=== PATIENT | female | born 1960 | race Hispanic/Latino ===

== ENCOUNTER 2019-07-08 18:43 | Observation (INO) | payer OTHER ==
--- NOTE | 2019-07-08 18:58 | Emergency Department Report ---
Blank Doc - Documentation Documentation: 58-year-old female that presents with chest pain and SOB. This initial assessment/diagnostic orders/clinical plan/treatment(s) is/are subject to change based on patient's health status, clinical progression and re- assessment by fellow clinical providers in the ED. Further treatment and workup at subsequent clinical providers discretion. Patient/guardians urged not to elope from the ED as their condition may be serious if not clinically assessed and managed. Initial orders include: 1- Patient sent to MAIN for further evaluation and treatment 2- labs 3- EKG 4- CXR
--- NOTE | 2019-07-08 19:44 | XRay Report ---
CHEST 2 VIEWS INDICATION: Chest Pain. COMPARISON: None FINDINGS: Support devices: None. Heart: Within normal limits. 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 Pleura: No significant pleural effusion. No pneumothorax. Additional findings: None. IMPRESSION: 1. 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
[2019-07-08 19:55] LABS: Basophils # (Auto) 0.1 K/mm3 (0.0-0.1); Basophils % (Auto) 0.8 % (0.0-1.8); Eosinophils # (Auto) 0.1 K/mm3 (0.0-0.4); Eosinophils % (Auto) 2.2 % (0.0-4.3); Hematocrit 42.1 % (30.3-42.9); Hemoglobin 14.2 gm/dl (10.1-14.3); Lymphocytes # (Auto) 2.6 K/mm3 (1.2-5.4); Lymphocytes % (Auto) 38.8 % (13.4-35.0); Mean Corpuscular HGB Conc 34 % (30-34); Mean Corpuscular Volume 90 fl (79-97); Monocytes # (Auto) 0.4 K/mm3 (0.0-0.8); Monocytes % (Auto) 6.2 % (0.0-7.3); Platelet Count 252 K/mm3 (140-440); Red Blood Count 4.66 M/mm3 (3.65-5.03); Red Cell Distribution Width 12.8 % (13.2-15.2)
[2019-07-08 20:05] LABS: INR 0.98 (0.87-1.13)
[2019-07-08 20:46] LABS: Alanine Aminotransferase 28 units/L (7-56); Albumin 4.7 g/dL (3.9-5); BUN/Creatinine Ratio 18; Blood Urea Nitrogen 11 mg/dL (7-17); Calcium 9.2 mg/dL (8.4-10.2); Hemolysis Index 23
[2019-07-08] MEDS ORDERED: NITROGLYCERIN 2% OINT 1 GM TP ONE (23:15)
[2019-07-08] MEDS ORDERED: ONDANSETRON 4 MG/2 ML INJ IV ONE (23:15)
[2019-07-08] MEDS ORDERED: fentaNYL 100 MCG/2 ML INJ IV ONE (23:15)
--- NOTE | 2019-07-08 23:20 | Emergency Department Report ---
HPI - General Chief Complaint: Chest Pain Time Seen by Provider: 07/08/19 18:58 - HPI HPI: Room 19 The patient is a 58-year-old female presenting with a chief complaint of chest pain. The patient states for approximately 1.5 months she's had daily chest pain described as a pressure in nature. Patient missed a shortness of breath and nausea but denies vomiting or diaphoresis with her chest pain. Patient gets her chest pain a score of 4/10 currently. The patient states her chest pain started approximately 1 hour before landing when she flew to many [place] 1.5 months ago. The patient states she went emergency department had a CT scan of her chest performed which only revealed a right-sided aortic arch. There is no evidence of PE. The patient states she had a stress test May 14 which was normal (this was before the onset of her chest pain). But she has never had a cardiac catheterization Location: [See above] Duration: [See above] Quality: [See above] Severity: [See above] Timing: [See above] Context: [See above] Modifying factors: [See above] Associated signs and symptoms: [see above] ED Past Medical Hx - Past Medical History Hx Hypertension: Yes (2015) Hx Arthritis: Yes - Surgical History Past Surgical History?: No Additional Surgical History: Cochlear implant, herniorrhaphy - Family History Family history: no significant - Social History Smoking Status: Former Smoker (none 24 years) Substance Use Type: None (denies illicit drug use) - Medications Home Medications: Home Medications Medication Instructions Recorded Confirmed Last Taken Type ALPRAZolam [Alprazolam] 0.5 mg PO PRN 07/31/16 07/31/16 07/30/16 History Carvedilol 12.5 mg PO BID 07/31/16 07/31/16 07/31/16 06:00 History Hydroxychloroquine [Plaquenil] 200 mg PO BID 07/31/16 07/31/16 07/30/16 History Meclizine [Antivert] 25 mg PO TID PRN 07/31/16 07/31/16 07/27/16 History ED Review of Systems ROS: Stated complaint: CHEST PAIN Other details as noted in HPI Constitutional: denies: diaphoresis Eyes: denies: eye pain ENT: denies: throat pain Respiratory: shortness of breath Cardiovascular: chest pain Endocrine: no symptoms reported Gastrointestinal: nausea. denies: vomiting Genitourinary: denies: dysuria Musculoskeletal: denies: back pain Neurological: denies: headache Physical Exam - Physical Exam Vital Signs: Vital Signs 07/08/19 07/08/19 07/08/19 18:54 21:45 22:04 Temperature 97.8 F Pulse Rate 59 L Respiratory 20 16 Rate Blood Pressure Blood Pressure 165/73 [Left] O2 Sat by Pulse 99 100 97 Oximetry 07/08/19 07/08/19 22:15 22:31 Temperature Pulse Rate 55 L 56 L Respiratory 16 19 Rate Blood Pressure 166/75 Blood Pressure [Left] O2 Sat by Pulse 99 98 Oximetry Physical Exam: GENERAL: The patient is well-developed well-nourished female lying on stretcher not appearing to be in acute distress. [] HEENT: Normocephalic. Atraumatic. Extraocular motions are intact. Patient has moist mucous membranes. NECK: Supple. Trachea midline CHEST/LUNGS: Clear to auscultation. There is no respiratory distress noted. HEART/CARDIOVASCULAR: Regular. There is no tachycardia. There is no gallop rub or murmur. ABDOMEN: Abdomen is soft, nontender. Patient has normal bowel sounds. There is no abdominal distention. SKIN: There is no rash. There is no edema. There is no diaphoresis. NEURO: The patient is awake, alert, and oriented. The patient is cooperative. The patient has normal speech MUSCULOSKELETAL: There is no evidence of acute injury. ED Course Vital Signs 07/08/19 07/08/19 07/08/19 18:54 21:45 22:04 Temperature 97.8 F Pulse Rate 59 L Respiratory 20 16 Rate Blood Pressure Blood Pressure 165/73 [Left] O2 Sat by Pulse 99 100 97 Oximetry 07/08/19 07/08/19 22:15 22:31 Temperature Pulse Rate 55 L 56 L Respiratory 16 19 Rate Blood Pressure 166/75 Blood Pressure [Left] O2 Sat by Pulse 99 98 Oximetry ED Medical Decision Making - Lab Data Result diagrams: 07/08/19 19:03 07/08/19 19:03 Laboratory Tests 07/08/19 07/08/19 07/08/19 19:03 19:03 19:03 WBC 6.8 RBC 4.66 Hgb 14.2 Hct 42.1 MCV 90 MCH 31 MCHC 34 RDW 12.8 L Plt Count 252 Lymph % (Auto) 38.8 H [place] % (Auto) 6.2 Eos % (Auto) 2.2 Baso % (Auto) 0.8 Lymph # 2.6 [place] # 0.4 Eos # 0.1 Baso # 0.1 Seg Neutrophils % 52.0 Seg Neutrophils # 3.5 PT 12.9 INR 0.98 APTT 28.0 Sodium 137 Potassium 3.9 Chloride 100.7 Carbon Dioxide 23 Anion Gap 17 BUN 11 Creatinine 0.6 L Estimated GFR > 60 BUN/Creatinine Ratio 18 Glucose 89 Calcium 9.2 Total Bilirubin 1.10 AST 24 ALT 28 Alkaline Phosphatase 66 Troponin T < 0.010 Total Protein 7.7 Albumin 4.7 Albumin/Globulin Ratio 1.6 07/08/19 21:43 WBC RBC Hgb Hct MCV MCH MCHC RDW Plt Count Lymph % (Auto) [place] % (Auto) Eos % (Auto) Baso % (Auto) Lymph # [place] # Eos # Baso # Seg Neutrophils % Seg Neutrophils # PT INR APTT Sodium Potassium Chloride Carbon Dioxide Anion Gap BUN Creatinine Estimated GFR BUN/Creatinine Ratio Glucose Calcium Total Bilirubin AST ALT Alkaline Phosphatase Troponin T < 0.010 Total Protein Albumin Albumin/Globulin Ratio - EKG Data -: EKG Interpreted by Me EKG shows normal: sinus rhythm Rate: bradycardia (58 bpm) - EKG Data When compared to previous EKG there are: previous EKG unavailable Interpretation: nonspecific ST-T wave bernardo (T-wave inversion in leads V2, V3) - Radiology Data Radiology results: report reviewed (chest x-ray), image reviewed (chest x-ray) interpreted by me: Chest x-ray-no focal infiltrates, no pneumothorax. [address] [address] XRay Report Signed Patient: EDVIN SCHULZ MR #: [id number] : 1960 Acct:[id number] Age/Sex: 58 / F ADM Date: 07/08/19 Loc: ED Attending Dr: Ordering Physician: KETTY LEROY NP Date of Service: 07/08/19 Procedure(s): XR chest routine 2V Accession Number(s): [id number] cc: KETTY LEROY NP Fluoro Time In Minutes: CHEST 2 VIEWS INDICATION: Chest Pain. COMPARISON: None FINDINGS: Support devices: None. Heart: Within normal limits. 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 Pleura: No significant pleural effusion. No pneumothorax. Additional findings: None. IMPRESSION: 1. 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 ED Disposition Clinical Impression: Chest pain Disposition: DC-09 OP ADMIT IP TO THIS HOSP Is pt being admited?: Yes Does the pt Need Aspirin: Yes Condition: Fair Instructions: Chest Pain (ED) Time of Disposition: 23:21 (hospitalist paged (Dr Stokes))
[2019-07-08] MEDS ORDERED: ASPIRIN 325 MG TAB PO ONE (23:22)
[2019-07-08] MEDS ORDERED: NITROGLYCERIN 0.4 MG TAB SUBL SL PRN (23:51)
[2019-07-08] MEDS ORDERED: MORPHINE 2 MG/1 ML INJ IV PRN (23:52)
[2019-07-08] MEDS ORDERED: ACETAMINOPHEN 325 MG TAB PO PRN (23:52)
[2019-07-08] MEDS ORDERED: ONDANSETRON 4 MG/2 ML INJ IV PRN (23:52)
[2019-07-08] MEDS: HEPARIN 5,000 UNIT/1 ML VIAL SUB-Q SCH (23:55)
[2019-07-09] MEDS ORDERED: HEPARIN 5,000 UNIT/1 ML VIAL ONE (01:07)
[2019-07-09] MEDS ORDERED: ASPIRIN 325 MG TAB ONE (01:07)
[2019-07-09] MEDS ORDERED: ONDANSETRON 4 MG/2 ML INJ ONE ×2 (01:08)
[2019-07-09 04:02] VITALS: BP 109/63
--- NOTE | 2019-07-09 05:02 | History and Physical Report ---
CHIEF COMPLAINT: Chest pain. HISTORY OF PRESENT ILLNESS: The patient is a 58-year-old female who says she has been having chest pain on and off for about 1-1/2 months, and has gone [place], where they checked and did a CAT scan and some echocardiogram without finding anything. The patient then started having chest pain recently and has also had a CAT scan done in the Emergency Room in another facility, where they ruled out pulmonary embolism. The patient states she has had stress test done within the last 2 months because of this recurrent chest pain, and the stress test was unremarkable. The patient has never had a cardiac catheterization done. There is history of associated shortness of breath and nausea, but no vomiting. There is no history of diaphoresis. The pain is located in the precordial area, appears as a pressure sensation in the chest and radiates down to the back area. PAST MEDICAL HISTORY: Pertinent for hypertension. Also, the patient has past medical history of lupus erythematosus and arthritis. PAST SURGICAL HISTORY: Pertinent for herniorrhaphy and cochlear implant for difficulty with hearing. FAMILY HISTORY: Noncontributory. SOCIAL HISTORY: The patient is a former cigarette smoker and quit about 24 years ago. The patient does not drink alcohol and does not use illicit drug. MEDICATIONS: The patient is on alprazolam 0.5 mg by mouth as needed and carvedilol 12.5 mg by mouth twice daily. The patient is also on Plaquenil, hydroxychloroquine 200 mg by mouth twice daily. The patient is on meclizine 25 mg by mouth 3 times daily as needed for vertigo. ALLERGIES: There are no known drug allergies. REVIEW OF SYSTEMS: CONSTITUTIONAL: There is no fever, no chills, no diaphoresis. HEENT: There is no headache or sore throat. CARDIOVASCULAR SYSTEM: Chest pain is present. No orthopnea. RESPIRATORY SYSTEM: Shortness of breath is present and no cough. GASTROINTESTINAL SYSTEM: There is nausea, but no vomiting, no abdominal pain, diarrhea or constipation. NEUROLOGICAL SYSTEM: There is no numbness, no dizziness, no altered mental status. MUSCULOSKELETAL SYSTEM: There is no joint pain or swelling. DERMATOLOGICAL SYSTEM: There is no skin rash or itching. GENITOURINARY SYSTEM: There is no dysuria, hematuria or flank pain. Rest of system review is normal. PHYSICAL EXAMINATION: GENERAL: At the time of exam, the patient was found to be alert, oriented x 3 and not in acute distress. VITAL SIGNS: At the initial time of presentation showed temperature of 97.8 degrees Fahrenheit, pulse of 59, respirations 20, blood pressure 165/73, O2 sat of 99% on room air. HEENT: Showed pupils to be equal, round, reactive to light and accommodating. Extraocular muscles are intact. NECK: Supple with no JVD or carotid bruit. CARDIOVASCULAR SYSTEM: Shows normal first and second heart sounds with no gallops or murmurs. RESPIRATORY SYSTEM: Shows good air entry on both sides of the lungs with no abnormal breath sounds. GASTROINTESTINAL SYSTEM: Shows abdomen to be full, soft, nontender with no organomegaly or rigidity. NEUROLOGIC: Shows no focal deficit. MUSCULOSKELETAL SYSTEM: Shows no joint swelling or tenderness. DERMATOLOGICAL SKIN: Shows no skin rash. GENITOURINARY SYSTEM: Shows no costovertebral angle tenderness. IMAGING STUDIES: The patient had chest x-ray done that shows probable right aortic arch and there is recommendation to correlate clinically by the radiologist. PERTINENT LABORATORY RESULTS: The patient had the following lab results done; CBC showed normal white count, normal hemoglobin and normal hematocrit with CBC differential showing elevated lymphocyte count of 38.8%. The patient's coagulation studies were unremarkable. Chemistry came back unremarkable and the patient's troponin level, 2 sets, already were normal. DIAGNOSIS: Chest pain. PLAN OF CARE: 1. The patient will be placed on observation on telemetry. 2. The patient will have serial cardiac enzymes involving troponin done 6 hours after the second troponin was done. 3. The patient will have Cardiology consult with Dr. Iban Rowell for evaluation because of recurrent chest pain and recent history of negative stress test. 4. The patient will be on IV morphine 2 mg every 3 hours as needed for pain and IV Zofran 4 mg every 8 hours for nausea and vomiting. 5. The patient will be on nitro paste half-inch to anterior chest wall q.i.d. and will be on sublingual nitroglycerin 0.4 mg every 5 minutes as needed for breakthrough chest pain. 6. The patient will be on aspirin 325 mg by mouth daily and heparin 5000 units subcutaneously q. 12 hours for DVT prophylaxis. 7. The patient will be on Tylenol 650 mg by mouth every 4 hours for fever and headache. 8. The patient will be on oxygen by nasal cannula at 2 liters per minute. JOB# [id number] OCN/NTS
[2019-07-09] MEDS: NITROGLYCERIN 2% OINT 1 GM TP SCH ×4 (06:34→17:26)
[2019-07-09] MEDS: HEPARIN 5,000 UNIT/1 ML VIAL SUB-Q SCH (09:11)
--- NOTE | 2019-07-09 09:27 | Consultation ---
<TEGAN LUCERO - Last Filed: 07/09/19 13:29> History of Present Illness Consult date: 07/09/19 Consult reason: chest pain History of present illness: This is a 58-year old woman with a history of systemic lupus erythematosus and hypertension who presented with complaints of chest pain. Patient reports chest pain underneath her breasts and across her chest has been intermittent for several weeks. She denies unusual shortness of breath and palpitations. Early May she had a normal perfusion stress thallium test and a normal left ventricular systolic function, ejection fraction 55-65% by echocardiogram as an outpatient. Patient reports she was hospitalized at [facility] just two weeks ago with similar complaints. 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 Medications and Allergies Allergies Allergy/AdvReac Type Severity Reaction Status Date / Time No Known Allergies Allergy Unverified 07/31/16 08:17 Home Medications Medication Instructions Recorded Confirmed Last Taken Type ALPRAZolam [Alprazolam] 0.5 mg PO PRN 07/31/16 07/09/19 07/30/16 History Active Meds: Active Medications Acetaminophen (Tylenol) 650 mg PO Q4H PRN PRN Reason: Headache Aspirin (Aspirin) 325 mg PO QDAY [facility] Last Admin: 07/09/19 09:11 Dose: Not Given Documented by: Heparin Sodium (Porcine) (Heparin) 5,000 unit SUB-Q Q12HR [facility] Last Admin: 07/09/19 09:11 Dose: Not Given Documented by: Morphine Sulfate (Morphine) 2 mg IV Q3H PRN PRN Reason: Pain, Moderate (4-6) Nitroglycerin (Nitro-Bid 2%) 0.5 inch TP QIDNTG [facility]; Protocol Last Admin: 07/09/19 09:12 Dose: Not Given Documented by: Nitroglycerin (Nitrostat) 0.4 mg SL .Q5MIN PRN PRN Reason: Chest Pain Ondansetron HCl (Zofran) 4 mg IV Q8H PRN PRN Reason: Nausea And Vomiting Physical Examination Vital Signs Temp Pulse Resp BP Pulse Ox 97.8 F 59 L 20 165/73 99 07/08/19 18:54 07/08/19 18:54 07/08/19 18:54 07/08/19 18:54 07/08/19 18:54 General appearance: no acute distress HEENT: Positive: PERRL Neck: Positive: trachea midline Cardiac: Positive: Reg Rate and Rhythm Lungs: Positive: Normal Breath Sounds Neuro: Positive: Grossly Intact Extremities: Absent: edema Results 07/08/19 19:03 07/08/19 19:03 Cardiac Enzymes 07/08/19 Range/Units 19:03 AST 24 (5-40) units/L Coagulation 07/08/19 Range/Units 19:03 PT 12.9 (12.2-14.9) Sec. INR 0.98 (0.87-1.13) APTT 28.0 (24.2-36.6) Sec. CBC 07/08/19 Range/Units 19:03 WBC 6.8 (4.5-11.0) K/mm3 RBC 4.66 (3.65-5.03) M/mm3 Hgb 14.2 (10.1-14.3) gm/dl Hct 42.1 (30.3-42.9) % Plt Count 252 (140-440) K/mm3 Lymph # 2.6 (1.2-5.4) K/mm3 Power # 0.4 (0.0-0.8) K/mm3 Eos # 0.1 (0.0-0.4) K/mm3 Baso # 0.1 (0.0-0.1) K/mm3 Comprehensive Metabolic Panel 07/08/19 Range/Units 19:03 Sodium 137 (137-145) mmol/L Potassium 3.9 (3.6-5.0) mmol/L Chloride 100.7 (98-107) mmol/L Carbon Dioxide 23 (22-30) mmol/L BUN 11 (7-17) mg/dL Creatinine 0.6 L (0.7-1.2) mg/dL Glucose 89 (65-100) mg/dL Calcium 9.2 (8.4-10.2) mg/dL AST 24 (5-40) units/L ALT 28 (7-56) units/L Alkaline Phosphatase 66 (35-129) units/L Total Protein 7.7 (6.3-8.2) g/dL Albumin 4.7 (3.9-5) g/dL Assessment and Plan Atypical chest pain normal MPI 05/2019 normal LVEF 55-60% by echo 05/2019 normal stress echo at [facility] 06/2019 per pt Hx of systemic lupus erythematosus Hx of right aortic arch Hypertension No further cardiac workup indicated. Recommend evaluation for non-cardiac chest pain. <THIAGO DE LA VEGA - Last Filed: 07/09/19 20:32> Physical Examination Vital Signs Temp Pulse Resp BP Pulse Ox 97.8 F 59 L 20 165/73 99 07/08/19 18:54 07/08/19 18:54 07/08/19 18:54 07/08/19 18:54 07/08/19 18:54 Results 07/08/19 19:03 07/08/19 19:03 Cardiac Enzymes 07/08/19 Range/Units 19:03 AST 24 (5-40) units/L Comprehensive Metabolic Panel 07/08/19 Range/Units 19:03 Sodium 137 (137-145) mmol/L Potassium 3.9 (3.6-5.0) mmol/L Chloride 100.7 (98-107) mmol/L Carbon Dioxide 23 (22-30) mmol/L BUN 11 (7-17) mg/dL Creatinine 0.6 L (0.7-1.2) mg/dL Glucose 89 (65-100) mg/dL Calcium 9.2 (8.4-10.2) mg/dL AST 24 (5-40) units/L ALT 28 (7-56) units/L Alkaline Phosphatase 66 (35-129) units/L Total Protein 7.7 (6.3-8.2) g/dL Albumin 4.7 (3.9-5) g/dL Assessment and Plan I have seen and evaluated the patient and agree with the assessment and plan.
[2019-07-09] MEDS ORDERED: ASPIRIN 325 MG TAB PO SCH (10:00)
[2019-07-09] MEDS ORDERED: MECLIZINE 25 MG TAB PO PRN (12:52)
--- NOTE | 2019-07-09 12:53 | Progress Note ---
Assessment and Plan Assessment and plan: Atypical chest pain. Etiology may be costochondritis from SLE. Patient reportedly with normal MPI 05/2019, normal LVEF 55-60% by echo 05/2019 and normal stress echo at [facility] 06/2019. Cardiology consulted. SLE. Resume Plaquenil. History of right aortic arch Hypertension. Resume home antihypertensive medications of lisinopril and metoprolol. Disposition. If no further cardiac workup consider DC. History Interval history: No new issues overnight Hospitalist Physical - Constitutional Vitals: Temp Pulse Resp BP Pulse Ox 97.8 F 47 L 16 109/63 98 07/09/19 03:43 07/09/19 08:37 07/09/19 03:43 07/09/19 03:43 07/09/19 09:40 General appearance: Present: no acute distress - EENT Eyes: Present: PERRL, EOM intact ENT: hearing intact, clear oral mucosa, dentition normal - Neck Neck: Present: supple, normal ROM - Respiratory Respiratory effort: normal Respiratory: bilateral: CTA - Cardiovascular Rhythm: regular Heart Sounds: Present: S1 & S2. Absent: gallop, rub - Extremities Extremities: no ischemia, No edema, Full ROM - Abdominal General gastrointestinal: soft, non-tender, non-distended, normal bowel sounds - Integumentary Integumentary: Present: clear, warm, dry - Neurologic Neurologic: CNII-XII intact, moves all extremities Results - Labs CBC & Chem 7: 07/08/19 19:03 07/08/19 19:03 Labs: Laboratory Last Values WBC 6.8 K/mm3 (4.5-11.0) 07/08/19 19:03 RBC 4.66 M/mm3 (3.65-5.03) 07/08/19 19:03 Hgb 14.2 gm/dl (10.1-14.3) 07/08/19 19:03 Hct 42.1 % (30.3-42.9) 07/08/19 19:03 MCV 90 fl (79-97) 07/08/19 19:03 MCH 31 pg (28-32) 07/08/19 19:03 MCHC 34 % (30-34) 07/08/19 19:03 RDW 12.8 % (13.2-15.2) L 07/08/19 19:03 Plt Count 252 K/mm3 (140-440) 07/08/19 19:03 Lymph % (Auto) 38.8 % (13.4-35.0) H 07/08/19 19:03 [place] % (Auto) 6.2 % (0.0-7.3) 07/08/19 19:03 Eos % (Auto) 2.2 % (0.0-4.3) 07/08/19 19:03 Baso % (Auto) 0.8 % (0.0-1.8) 07/08/19 19:03 Lymph # 2.6 K/mm3 (1.2-5.4) 07/08/19 19:03 [place] # 0.4 K/mm3 (0.0-0.8) 07/08/19 19:03 Eos # 0.1 K/mm3 (0.0-0.4) 07/08/19 19:03 Baso # 0.1 K/mm3 (0.0-0.1) 07/08/19 19:03 Seg Neutrophils % 52.0 % (40.0-70.0) 07/08/19 19:03 Seg Neutrophils # 3.5 K/mm3 (1.8-7.7) 07/08/19 19:03 PT 12.9 Sec. (12.2-14.9) 07/08/19 19:03 INR 0.98 (0.87-1.13) 07/08/19 19:03 APTT 28.0 Sec. (24.2-36.6) 07/08/19 19:03 Sodium 137 mmol/L (137-145) 07/08/19 19:03 Potassium 3.9 mmol/L (3.6-5.0) 07/08/19 19:03 Chloride 100.7 mmol/L (98-107) 07/08/19 19:03 Carbon Dioxide 23 mmol/L (22-30) 07/08/19 19:03 Anion Gap 17 mmol/L 07/08/19 19:03 BUN 11 mg/dL (7-17) 07/08/19 19:03 Creatinine 0.6 mg/dL (0.7-1.2) L 07/08/19 19:03 Estimated GFR > 60 ml/min 07/08/19 19:03 BUN/Creatinine Ratio 18 % 07/08/19 19:03 Glucose 89 mg/dL (65-100) 07/08/19 19:03 Calcium 9.2 mg/dL (8.4-10.2) 07/08/19 19:03 Total Bilirubin 1.10 mg/dL (0.1-1.2) 07/08/19 19:03 AST 24 units/L (5-40) 07/08/19 19:03 ALT 28 units/L (7-56) 07/08/19 19:03 Alkaline Phosphatase 66 units/L (35-129) 07/08/19 19:03 Troponin T < 0.010 ng/mL (0.00-0.029) 07/09/19 05:30 Total Protein 7.7 g/dL (6.3-8.2) 07/08/19 19:03 Albumin 4.7 g/dL (3.9-5) 07/08/19 19:03 Albumin/Globulin Ratio 1.6 % 07/08/19 19:03 Active Medications - Current Medications Current Medications: Generic Name Dose Route Start Last Admin Trade Name Freq PRN Reason Stop Dose Admin Acetaminophen 650 mg 07/08/19 23:52 Tylenol PO Q4H PRN Headache Aspirin 325 mg 07/09/19 10:00 07/09/19 09:11 Aspirin PO Not Given QDAY [facility] Heparin Sodium (Porcine) 5,000 unit 07/08/19 23:55 07/09/19 09:11 Heparin SUB-Q Not Given Q12HR [facility] Morphine Sulfate 2 mg 07/08/19 23:52 Morphine IV Q3H PRN Pain, Moderate (4-6) Nitroglycerin 0.5 inch 07/09/19 06:00 07/09/19 09:12 Nitro-Bid 2% TP Not Given QIDNTG [facility] Protocol Nitroglycerin 0.4 mg 07/08/19 23:51 Nitrostat SL .Q5MIN PRN Chest Pain Ondansetron HCl 4 mg 07/08/19 23:52 Zofran IV Q8H PRN Nausea And Vomiting
[2019-07-09] MEDS ORDERED: HYDROXYCHLOROQUINE 200 MG TAB PO SCH (22:00)
[2019-07-09] MEDS ORDERED: METOPROLOL SUCCINATE XL 50 MG TAB PO SCH (22:00)
[2019-07-09] MEDS ORDERED: carvediloL 12.5 MG TAB PO SCH (22:00)
[2019-07-09] MEDS ORDERED: LISINOPRIL 5 MG TAB PO SCH (22:00)
--- NOTE | 2019-07-12 12:43 | Discharge Summary ---
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 Patient reported chest pain underneath her breasts and across her chest has been intermittent for several weeks. She denied unusual shortness of breath and palpitations. Early May she had a normal perfusion stress thallium test and a normal left ventricular systolic function, ejection fraction 55-65% by echocardiogram as an outpatient. Patient reported she was hospitalized at [place] just two weeks ago with similar complaints. 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 Etiology of the chest pain was felt to be secondary to costochondritis. Cardiology felt that no further cardiac workup was indicated. Cardiac isoenzymes and EKG were found to be negative. Dedicated discharge time 32 minutes. Disposition: TO HOME OR SELFCARE Time spent for discharge: 32 - Discharge Diagnoses (1) Costochondritis Status: Acute Core Measure Documentation - Palliative Care Palliative Care/ Comfort Measures: Not Applicable - Core Measures Any of the following diagnoses?: none Exam - Constitutional Vitals: Temp Pulse Resp BP Pulse Ox 97.8 F 47 L 16 109/63 98 07/09/19 03:43 07/09/19 08:37 07/09/19 03:43 07/09/19 03:43 07/09/19 09:40 General appearance: Present: no acute distress, well-nourished - EENT Eyes: Present: PERRL ENT: hearing intact, clear oral mucosa - Neck Neck: Present: supple, normal ROM - Respiratory Respiratory effort: normal Respiratory: bilateral: CTA - Cardiovascular Heart Sounds: Present: S1 & S2. Absent: rub, click - Extremities Extremities: pulses symmetrical, No edema Peripheral Pulses: within normal limits - Abdominal General gastrointestinal: Present: soft, non-tender, non-distended, normal bowel sounds Female genitourinary: Present: normal - Integumentary Integumentary: Present: clear, warm, dry - Musculoskeletal Musculoskeletal: gait normal, strength equal bilaterally - Psychiatric Psychiatric: appropriate mood/affect, intact judgment & insight - Neurologic Neurologic: CNII-XII intact, moves all extremities Plan Activity: no restrictions Weight Bearing Status: Weight Bear as Tolerated Follow up with: PRIMARY CARE, [Primary Care Provider] - 7 Days
== END 2019-07-09 19:48 | disposition home or self-care (01) ==
LOC: ED 18:43 → 4A 23:49
PROVIDERS: ADMIT Internal Medicine; ATTEND Hospitalist
DX: R07.89 Other chest pain (principal); I10 Essential (primary) hypertension; M32.9 Systemic lupus erythematosus, unspecified; M19.90 Unspecified osteoarthritis, unspecified site; Z98.890 Other specified postprocedural states; Z87.891 Personal history of nicotine dependence
CPT/HCPCS: 36415; 71046; 80053; 84484; 85025; 85610; 85730; 93005; 93010; 96372; 96374; 99284; G0378; J1644; J2405